=== PATIENT | male | born 1990 | race Caucasian/White ===

== ENCOUNTER 2016-10-16 13:14 | Inpatient (IN) | payer BC, OTHER ==
[~2016-10-16] VITALS: Ht 185.4 cm; Wt 86.2 kg
[2016-10-16] MEDS ORDERED: ACETAMINOPHEN 325 MG TABLET PO PRN (13:30)
[2016-10-16] MEDS ORDERED: MAG HYDROX/AL HYDROX/SIMETH 30 ML LIQUID UDC PO PRN (13:30)
[2016-10-16] MEDS ORDERED: MAGNESIUM HYDROXIDE 30 ML LIQUID UDC PO PRN (13:30)
[2016-10-16] MEDS ORDERED: LOPERAMIDE HCL 2 MG CAPSULE PO PRN ×2 (13:30)
[2016-10-16] MEDS ORDERED: CLONIDINE HCL 0.1 MG TABLET PO PRN (13:30)
[2016-10-16] MEDS ORDERED: ONDANSETRON ODT 4 MG TAB.RAPDIS SL PRN (13:30)
[2016-10-16] MEDS ORDERED: BUPRENORPHINE HCL 2 MG TAB.SUBL SL PRN (13:30)
[2016-10-16] MEDS ORDERED: DICYCLOMINE HCL 20 MG TABLET PO PRN (13:30)
[2016-10-16] MEDS ORDERED: IBUPROFEN 600 MG TABLET PO PRN (13:30)
[2016-10-16] MEDS ORDERED: HYDROXYZINE PAMOATE 25 MG CAPSULE PO PRN (13:30)
[2016-10-16] MEDS ORDERED: ONDANSETRON 4 MG/2 ML VIAL IM PRN (13:30)
[2016-10-16] MEDS ORDERED: MIRALAX 17 GM POWD.PACK PO PRN (13:30)
--- NOTE | 2016-10-16 14:49 | NUR ---
Admission Note VS: BP: 107/68 HR:61, SpO2: 98% RA, RR: 16, Temp: 97.7 Pain:0/10 Height: 6'1" Weight: 190 LB Allergies: LEA Pt is a 26 y/o male admitted to [facility] on 10/16/16 at 1400. Pt is under the care of Dr. Johnson for Heroin dependence. Pt denies suicidal and homicidal ideations at this time. Pt denies Chest Pain and SOB. Pt did not bring any home medications with him and denies taking any prescription medications. Upon assessment pt's skin integrity is intact. COWS 2 upon admission for anxiety and mild chills. NKA. Full Code. Alert and oriented x4. Pt is able to answer questions necessary for the admission process. Pt is Full Code. VS WNL, Regular Diet. Pt denies any past medical Hx. Hx of back surgery at 19 and 3 left knee surgeries. Reports Hx of a alcohol abuse by his father. Pt denies having any seizures in the past. Pt denies having a PCP. Breathing is even and unlabored, SpO2 is 98% on RA. Pt ambulates with a steady gait. Pt reports regular daily BM. LBM on 10/16/16. Pt reports smoking 1/[address] Johnson has been notified, pt has been placed under observation with an expected 5 day Subutex taper to began on 10/17/16. Urine has been collected for UDS. All needs have been met. Pt has been oriented to the room and the unit. All safety measures in place per hospital policy. Bed in lowest position, side rails up x2 and padded, call-light within reach. Will continue to monitor. Substance Abuse: Heroin: smokes 1g daily for 5 months. Last use: 1/4g on 10/16/16 at 0630
[2016-10-16 15:09] LABS: BASOPHILS # (AUTO) 0.1 K/uL (0.0-8.0); EOSINOPHILS # (AUTO) 0.4 K/uL (0.0-0.7); EOSINOPHILS % (AUTO) 6.3 % (0.0-7.0); HEMATOCRIT 41.5 % (40-50); HEMOGLOBIN 13.6 G/DL (14.0-18.0); LYMPHOCYTES # (AUTO) 2.3 K/UL (0.8-4.8); LYMPHOCYTES % (AUTO) 33.6 % (20.5-51.5); MEAN CORPUSCULAR HEMOGLOBIN 29.5 UUG (27.0-31.0); MEAN CORPUSCULAR HGB CONC 33 g/dL (32.0-37.0); MEAN CORPUSCULAR VOLUME 89.8 FL (82.0-92.0); MONOCYTES # (AUTO) 0.6 K/UL (0.1-1.30); MONOCYTES % (AUTO) 8.2 % (0.0-11.0); NEUTROPHILS # (AUTO) 3.6 K/UL (1.8-8.9); NEUTROPHILS % (AUTO) 50.9 % (38.5-71.5); PLATELET COUNT (AUTO) 226 K/UL (150-450); RED BLOOD CELL COUNT(AUTO) 4.62 MIL/UL (4.7-6.1)
[2016-10-16 15:12] LABS: *AMPHETAMINE, URINE POSITIVE (NEGATIVE); *BARBITURATE, URINE NEGATIVE (NEGATIVE); *CANNABINOID, URINE POSITIVE (NEGATIVE); *COCCAINE, URINE NEGATIVE (NEGATIVE); *OPIATE, URINE POSITIVE (NEGATIVE); *PHENCYCLIDINE SCREEN,URINE NEGATIVE (NEGATIVE)
[2016-10-16 15:16] LABS: ALANINE AMINOTRANSFERASE 18 U/L (16-63); ALKALINE PHOSPHATASE 62 U/L (50-136); ASPARTATE AMINOTRANSFERASE 13 U/L (15-37); BILIRUBIN,TOTAL 0.2 mg/dL (0.2-1.0); CARBON DIOXIDE 31 mmol/L (21-32); CHLORIDE 105 mmol/L (98-107); CREATININE 0.8 mg/dL (0.6-1.3); GLUCOSE 83 mg/dL (74-106); MAGNESIUM 2.2 mg/dL (1.8-2.4); POTASSIUM 4.3 mmol/L (3.5-5.1); TOTAL PROTEIN, SERUM 6.7 g/dL (6.4-8.2); UREA NITROGEN, BLOOD 10 mg/dL (7-18)
[2016-10-16 15:36] LABS: ETHANOL < 3 MG/DL (0-0)
[2016-10-16 16:00] VITALS: BP 100/71
--- NOTE | 2016-10-16 19:09 | NUR ---
End of Shift Endorsement given to nightshift nurse. Pt is a 26 y/o male admitted to [facility] on 10/16/16 at 1400. Pt is under the care of Dr. Johnson for Heroin dependence. Pt denies suicidal and homicidal ideations at this time. Pt denies Chest Pain and SOB. Pt did not bring any home medications with him and denies taking any prescription medications. Upon assessment pt's skin integrity is intact. COWS 2 upon admission for anxiety and mild chills. NKA. Full Code. Alert and oriented x4. Pt is able to answer questions necessary for the admission process. Pt is Full Code. VS WNL, Regular Diet. Pt denies any past medical Hx. Hx of back surgery at 19 and 3 left knee surgeries. Reports Hx of a alcohol abuse by his father. Pt denies having any seizures in the past. Pt denies having a PCP. Breathing is even and unlabored, SpO2 is 98% on RA. Pt ambulates with a steady gait. Pt reports regular daily BM. LBM on 10/16/16. Pt reports smoking 1/2 pack a day. Pt did not receive any PRN medications. Intake: 150ml, Void x1, BM x0. All needs have been met. Pt has been oriented to the room and the unit. All safety measures in place per hospital policy. Bed in lowest position, side rails up x2 and padded, call-light within reach. Will continue to monitor.
--- NOTE | 2016-10-16 19:50 | NUR ---
START OF SHIFT Received report from day shift nurse. Pt is in his room watching TV. He is a 26 yo male admitted to [facility] for heroin dependence. He is A&O x4 and ambulatory. NKA, full code status, and on a regular diet. He has a PMH of left knee surgery and back surgery. On admission he reported using heroin 1 gram per day. Last use was this morning. Pt is ordered a 5 day subutex taper to start tomorrow. PRN medications available for the management of withdrawal symptoms. He is observed to be yawning and has moist skin. Fall and seizure precautions in place. Bed is down with call light in reach.
[2016-10-16 20:00] VITALS: BP 108/67
--- NOTE | 2016-10-16 20:00 | NUR ---
Nursing note Clarified with patient after UDS on admission shows positive for amphetamines and cannabinoids. Pt states he last used methamphetamine approximately one month ago. He cannot recall any recent use of amphetamines. He smoked marijuana on 10/15/16. He uses methamphetamine and marijuana 1x/month.
[2016-10-17] VITALS: BP 103/57
--- NOTE | 2016-10-17 | NUR ---
0000 COWS deferred COWS ordered Q4HWA. Pt is lying in bed resting with eyes closed. Vitals obtained. Safety measures in place.
[2016-10-17 04:00] VITALS: BP 101/59
--- NOTE | 2016-10-17 04:00 | NUR ---
0400 COWS deferred COWS ordered Q4HWA. Pt is lying in bed resting with eyes closed. Vitals obtained. Safety measures in place.
--- NOTE | 2016-10-17 07:05 | NUR ---
END OF SHIFT Report provided to day shift nurse. Pt is lying in bed resting. He is a 26 yo male admitted to [facility] on today for heroin dependence. He is A&O and ambulatory. NKA, full code status, and on a regular diet. He has a PMH of left knee surgery and back surgery. Upon admission he admitted to using heroin 1 gram per day. He used methamphetamine one month ago and marijuana on 10/15/16. He uses meth and marijuana 1x/month. He is ordered a 5 day subutex taper to start today. No PRN medications administered. Last COWS 3. He drank 1210mL and slept 8 hours. Fall and seizure precautions in place. Bed is down with call light in reach.
--- NOTE | 2016-10-17 07:51 | NUR ---
START OF SHIFT NOTE Received patient this AM Aox4. Patient sleeping in bed, but awakens to RN walking in room. He reports feeling "achey" but slept okay. He is to start a 5 day Subutex taper this morning. No PRNs given during overnight associate. He slept 8 hours. Last COWS 3 per overnight associate. Encouraged patient to increase fluid intake to facilitate detox. Will provide safe and supportive environment. Will continue to monitor.
[2016-10-17 08:00] VITALS: BP 118/64
[2016-10-17] MEDS: MULTIVITAMINS,THERAPEUTIC TABLET PO SCH (08:25)
[2016-10-17] MEDS ORDERED: TUBERCULIN,PURIF.PROT.DERIV. 5 TU/0.1 ML TEST ID ONE (09:00)
[2016-10-17] MEDS ORDERED: BUPRENORPHINE HCL 2 MG TAB.SUBL SL SCH (09:00)
[2016-10-17 12:00] VITALS: BP 104/62
[2016-10-17] MEDS: BUPRENORPHINE HCL 2 MG TAB.SUBL SL SCH ×3 (12:45→21:23)
[2016-10-17] MEDS: HYDROXYZINE PAMOATE 25 MG CAPSULE PO PRN ×2 (12:55→21:23)
[2016-10-17] MEDS: METHOCARBAMOL 750 MG TABLET PO PRN ×2 (12:55→21:23)
--- NOTE | 2016-10-17 12:57 | NUR ---
PRN MEDICATION PRN VISTARIL AND ROBAXIN GIVEN. PATIENT REPORTS BODY ACHES 6/10 ON PAIN SCALE. HE REPORTS AN INCREASE IN ANXIETY. WILL REASSESS
--- NOTE | 2016-10-17 13:32 | NUR ---
PRN REASSESSMENT Patient noted to be sleeping calmly in bed with rr even and unlabored. Call andrews within reach & bed locked and in lowest position. Will monitor.
[2016-10-17 14:08] LABS: HEPATITIS B SURFACE AG Negative (Negative)
[2016-10-17 16:00] VITALS: BP 94/61
--- NOTE | 2016-10-17 18:29 | NUR ---
END OF SHIFT NOTE Patient started on 5 day Subutex taper and tolerating well. PRN Vistaril and Robaxin given during shift with effectiveness. Last COWS 10. Patient reports feeling "crappy" all day and anxious. Vital signs stable. Patient slept most of shift and isolated self in room. No interaction with peers or group attendance. TB test administered during shift to [facility]. All needs have been met. Safety measures in place. Patient currently sleeping in bed with rr even and unlabored, call andrews within reach. Will pass shift report to [place] nurse.
[2016-10-17 20:00] VITALS: BP 113/67
--- NOTE | 2016-10-17 20:00 | NUR ---
START OF SHIFT NOTE PATIENT IN HIS ROOM, RESTING. PATIENT STATES HE'S ANXIOUS, SWEATING, HAS STOMACH CRAMPS, TREMORS NOT OBSERVED BUT FELT, YAWNING, NO N/V, AND C/O GENERALIZED BODY ACHES 10/14. PATIENT DID NOT ATTEND GROUPS, ENCOURAGED. PER PER PATIENT HE HAS NO APPETITE. ENCOURAGED FLUIDS. RECEIVED REPORT FROM DAY SHIFT NURSE. PATIENT IS A 26 YEAR OLD MALE, ADMITTED FOR HEROIN DEPENDENCE. PATIENT IS ON 5 DAY SUBUTEX TAPER. UPON ADMISSION, PATIENT REPORTED USING HEROIN (SMOKED) 1 GRAM FOR 5 MONTHS , METH AND MARIJUANA OCCASIONALLY. PATIENT REPORT PMH OF LEFT KNEE SURGERY X 3 AND BACK SURGERY X 1 IN 2009. SKIN INTACT. PATIENT IS ON FALL PRECAUTION. PATIENT WAS GIVEN ROBAXIN AND VISTARIL . PATIENT WAS TRYING TO LEAVE AMA TODAY, ADMINISTRATION TALKED TO PATIENT AND STAYED. LAST 10. SAFETY MEASURES IN PLACE. CALL LIGHT IN REACH. WILL CONTINUE TO MONITOR
[2016-10-17] MEDS: diphenhydrAMINE 50 MG CAPSULE PO PRN (21:23)
--- NOTE | 2016-10-17 21:23 | NUR ---
PRN BENADRYL/ROBAXIN AND VISTARIL ADMINISTRATION PATIENT C/O GENERALIZED BODY ACHES /10, ANXIETY AND REQUESTS FOR SLEEP AID. PRN BENADRYL, ROBAXIN AND VISTARIL GIVEN. WILL MONITOR FOR EFFECTIVENESS
--- NOTE | 2016-10-17 22:23 | NUR ---
PRN BENADRYL/ROBAXIN AND VISTARIL RE-ASSESSMENT PATIENT ASLEEP AT THIS TIME. NO S/S OF DISTRESS. NO FACIAL GRIMACING. WILL CONTINUE TO MONITOR
[2016-10-18] VITALS: BP 102/62
--- NOTE | 2016-10-18 04:00 | NUR ---
COWS/VS PATIENT ASLEEP. COWS UNABLE TO ASSESS. NO S/S OF DISTRESS. RESPIRATION EVEN AND UNLABORED. RR 15. SAFETY MEASURES IN PLACE. CALL LIGHT IN REACH. WILL CONTINUE TO MONITOR.
--- NOTE | 2016-10-18 07:15 | NUR ---
START OF SHIFT NOTE: RECEIVED PT FROM COLOR PRINTER OPERATOR NURSE, PT IS IN STABLE CONDITION NO S/S OF PAIN OR DISCOMFORT. PT'S LAST COWS IS 2 AND REMAINS ON A 5 DAY SUBUTEX TAPER, NO A/R REACTION NOTED. WILL CONTINUE TO MONITOR PT FOR ANY CHANGES
--- NOTE | 2016-10-18 07:16 | NUR ---
END OF SHIFT NOTE PATIENT STATES HE'S ANXIOUS, SWEATING, HAS STOMACH CRAMPS, TREMORS NOT OBSERVED BUT FELT, YAWNING, NO N/V, AND C/O GENERALIZED BODY ACHES 10/14 BEGINNING OF SHIFT. PATIENT DID NOT ATTEND GROUPS, ENCOURAGED. PER PATIENT HE HAS NO APPETITE . ENCOURAGED FLUIDS. PATIENT IS A 26 YEAR OLD MALE, ADMITTED FOR HEROIN DEPENDENCE. PATIENT IS ON 5 DAY SUBUTEX TAPER, TOLERATED WELL. NO ADVERSE REACTION. UPON ADMISSION, PATIENT REPORTED USING HEROIN (SMOKED) 1 GRAM FOR 5 MONTHS , METH AND MARIJUANA OCCASIONALLY. PATIENT REPORT PMH OF LEFT KNEE SURGERY X 3 AND BACK SURGERY X 1 IN 2009. SKIN INTACT. PATIENT IS ON FALL PRECAUTION. PATIENT IN ROOM MOST OF THE SHIFT. PATIENT WAS GIVEN ROBAXIN AND VISTARIL . SAFETY MEASURES IN PLACE. CALL LIGHT IN REACH. WILL CONTINUE TO MONITOR. SLEPT 10 HOURS. FLUID INTAKE 2,296 ML. VOIDED X 2 . NO BM. LAST COWS 2 .
[2016-10-18] MEDS: BUPRENORPHINE HCL 2 MG TAB.SUBL SL SCH ×3 (09:00→20:32)
[2016-10-18] MEDS: MULTIVITAMINS,THERAPEUTIC TABLET PO SCH (09:00)
[2016-10-18] MEDS ORDERED: BUPRENORPHINE HCL 2 MG TAB.SUBL SL SCH ×2 (09:00→15:00)
[2016-10-18 10:00] VITALS: BP 102/62
[2016-10-18] MEDS ORDERED: BUPRENORPHINE HCL 2 MG TAB.SUBL SL ONE (10:15)
[2016-10-18 14:39] VITALS: BP 111/65
[2016-10-18] MEDS: BACLOFEN 10 MG TABLET PO SCH ×2 (15:44→20:32)
[2016-10-18 18:57] VITALS: BP 120/64
--- NOTE | 2016-10-18 19:00 | NUR ---
START OF SHIFT NOTE: Patient endorsed by day shift nurse in stable condition. Report received. Patient is a 26 year old male admitted to [facility] on 10/16/2016 for Opioid and Methamphetamine ("occasional") dependence, continue 5 day Subutex Taper since 10/17/2016 with tolerated well without ASE. Patient remains compliant with treatment, medications and diet regime. Patient reports NKA, is on Full Code, is on Regular Diet, is on Fall Precautions. Patient denies Seizures History. Past Medical History: Heroin "smoked 1 gram daily during last 5 months. Last smoked 1/4 grams on 10/16/2016". Methamphetamine: "occasional". Marijuana: "occasional". Patient reports treatment at [facility] [place] in [facility]". Upon endorsement, patient is ambulatory with steady gate, stable, AOx4, speech is soft and clear. COWS 7. Patient presented with anxiety, agitation, nervousness, mild body aches, nasal stuffy/moist eyes, stomach cramps, yawning, and restlessness. VS WNL. Respirations unlabored and even. Lungs Sounds are clear bilaterally. Bowel Sounds active in all x4 quadrants. Last Bowel Movement was "10/18/16 at 1000". Skin is intact, warm and dry to touch. Encouraged fluids as tolerated. Encouraged to attend groups activities. Safety measures on place. Call light within reach, bed in lowest position and locked, padded rails up bilaterally rails up bilaterally. Will continue to monitor closely.
--- NOTE | 2016-10-18 19:00 | NUR ---
END OF SHIFT NOTE: PT IS IN STABLE CONDITION NO S/S OF PAIN OR DISCOMFORT, PT TOLERATED TAPER WELL NO A/R NOTED. PTS LAST COWS 3.PT IS ADMITTED TO [facility] FOR [facility]/METH. WITHDRAWAL/DEPENDENCE. WILL ENDORSE PT TO MARKETING AUTOMATION SPECIALIST NURSE.
[2016-10-18 20:00] VITALS: BP 114/63
[2016-10-18] MEDS: GABAPENTIN 300 MG CAPSULE PO SCH (20:31)
[2016-10-18] MEDS: diphenhydrAMINE 50 MG CAPSULE PO PRN (20:41)
--- NOTE | 2016-10-18 20:41 | NUR ---
PRN BENADRYL 50 MG 1 CAP PO ADMINISTRATION Patient c/o insomnia and ask aid. PRN Benadryl PO was discussed with patient. Patient's educated foe actions, adverse reactions, and side effects of Benadryl. Patient returned his knowledge back by verbalized understanding. PRN Benadryl 50 mg 1 cap PO administrated as ordered with full glass of water. All needs met. Safety measures on place. Call light within reach, bed in lowest position and locked, padded rails up bilaterally rails up bilaterally. Will continue to monitor closely.
--- NOTE | 2016-10-18 21:41 | NUR ---
RE-ASSESSMENT Patient is sleeping. RR 14. Respirations unlabored and even. PRN Benadryl PO was effective. All needs met. Safety measures on place. Call light within reach, bed in lowest position and locked, padded rails up bilaterally rails up bilaterally. Will continue to monitor closely.
[2016-10-19] VITALS: BP 119/71
--- NOTE | 2016-10-19 04:00 | NUR ---
VS REFUSED AND COWS DEFERRED Patient refused to be woken up for 04:00 VS. COWS deferred d/t patient sleeping to assess while patient is awake. Safety measures on place by hospital policy: Call light within reach, bed in lowest position and locked; side rails up x2. Will continue to monitor.
--- NOTE | 2016-10-19 07:23 | NUR ---
END OF SHIFT NOTE: Patient endorsed to day shift nurse in stable condition. Report given. Patient is a 26 year old male admitted to [facility] on 10/16/2016 for Opioid and Methamphetamine ("occasional") dependence, continue 5 day Subutex Taper since 10/17/2016 with tolerated well without ASE. Patient remains compliant with treatment, medications and diet regime. Patient reports NKA, is on Full Code, is on Regular Diet, is on Fall Precautions. Patient denies Seizures History. Past Medical History: Heroin "smoked 1 gram daily during last 5 months. Last smoked 1/4 grams on 10/16/2016". Methamphetamine: "occasionally". Marijuana: "occasionally". Last COWS decreased from 7 to 4. Patient presented with anxiety, agitation, nervousness, tremors that can be felt, mild body aches, stomach cramps, yawning, insomnia, and restlessness. VSWNL. Respirations unlabored and even. Patient denies SOB and chest pain. Skin is warm and dry to touch. PRN Benadryl PO was effective. Encouraged fluids as tolerated. Patient slept 8 hours, intake 1,000 ml, voided x1. All needs met. Safety measures on place. Call light within reach, bed in lowest position and locked, bed rails up bilaterally.
--- NOTE | 2016-10-19 07:30 | NUR ---
START OF SHIFT Pt 26 y/o male admitted for heroin dependence. Pt received in room on bed with eyes closed resting, but easily arousable to name. Pt alert and oriented to name, place, and time. Perrla. Skin warm and slightly moist to touch. Respirations even and unlabored. It was reported that pt slept for 8 hours last night. Bed on lowest position with side rails x2 up for safety. Call light within reach. No distress noted at this time.
[2016-10-19 08:00] VITALS: BP 101/63
[2016-10-19] MEDS: BACLOFEN 10 MG TABLET PO SCH ×3 (08:45→21:13)
[2016-10-19] MEDS: GABAPENTIN 300 MG CAPSULE PO SCH ×2 (08:45→21:13)
[2016-10-19] MEDS: MULTIVITAMINS,THERAPEUTIC TABLET PO SCH (08:45)
[2016-10-19] MEDS ORDERED: BUPRENORPHINE HCL 2 MG TAB.SUBL SL SCH ×2 (09:00)
[2016-10-19 13:00] VITALS: BP 110/72
[2016-10-19] MEDS: BUPRENORPHINE HCL 2 MG TAB.SUBL SL SCH ×2 (14:10→21:13)
[2016-10-19] MEDS: HYDROXYZINE PAMOATE 25 MG CAPSULE PO PRN (14:19)
--- NOTE | 2016-10-19 14:21 | NUR ---
PRN Pt states feels anxious. vistaril po prn per MD order given and tolerated well.
--- NOTE | 2016-10-19 14:22 | NUR ---
PRN Pt states still feels very anxious. Catapres po prn per MD order given and tolerated well.
--- NOTE | 2016-10-19 15:22 | NUR ---
JUSTIN HAND Pt observed in room on bed with eyes closed resting, but easily arousable to name. No distress noted at this time.
[2016-10-19 16:00] VITALS: BP 100/58
[2016-10-19 16:30] VITALS: BP 110/64
--- NOTE | 2016-10-19 18:31 | NUR ---
END OF SHIFT Pt 26 y/o male admitted for heroin dependence. Pt alert and oriented to name,place, and time. Perrla. Skin warm and moist to touch. Respirations even and unlabored. Bilateral hand tremors slightly noted. Pt was observed mostly isolative to room throughout the day. pt did not attend group activity. Pt was seen by Dr. Ivory today. Pt medication compliant and tolerated well. No ASE noted. Bed on lowest position with side rails x2 up for safety. Call light within reach. No distress noted at this time.
--- NOTE | 2016-10-19 19:15 | NUR ---
START OF SHIFT Received 26 year old male patient admitted on 10/16/16 for Heroin, meth and marijuana dependency. He is full code with with NKA. He reports a PMHx of left knee surgery and back surgery x1 in 2009. He reports using Heroin 1 gram (smoke) daily for 5 months. Last dose was gram on 10/16/16. Pt placed on 5 day Subutex and tolerating well. Per endorsement, pt received PRN catapres and vistaril. Pt is alert and oriented x4, breathing even and unlabored. Safety measures in place. Will continue to monitor.
[2016-10-19 20:00] VITALS: BP 102/65
[2016-10-19] MEDS: diphenhydrAMINE 50 MG CAPSULE PO PRN (21:13)
--- NOTE | 2016-10-19 21:13 | NUR ---
PRN BENADRYL Pt complains of inability to sleep. PRN Benadryl administered as ordered. Breathing even and unlabored, safety measures in place. Will continue to monitor effectiveness.
--- NOTE | 2016-10-19 22:13 | NUR ---
PRN BENADRYL REASSESSMENT PRN medication effective. Pt lying in bed with eyes closed noted to be asleep. Respirations 16, breathing even and unlabored, safety measures in place. Will monitor.
--- NOTE | 2016-10-20 | NUR ---
VITALS REFUSED, COWS DEFERRED 0000 vitals refused. COWS deferred d/t pt lying in bed with eyes closed noted to be asleep. Respirations 16, breathing even and unlabored. Safety measures in place. Will monitor.
--- NOTE | 2016-10-20 04:00 | NUR ---
VITALS REFUSED/COWS DEFERRED 0400 vitals refused. COWS deferred d/t pt lying in bed with eyes closed noted to be asleep. Respirations 16, breathing even and unlabored. Safety measures in place. Will continue to monitor.
--- NOTE | 2016-10-20 07:10 | NUR ---
Start of Shift Endorsement received from nightshift nurse. Pt has been placed 5 day Subutex taper. Pt is tolerating the taper and moderately withdrawing at this time AEB COWS 5 at 0400. Pt received PRN Benadryl during nightshift. Pt reports sleeping 9 hours. Pt reports feeling rested and ready for sobriety. VS WNL. Full Code. VS WNL, Full CODE. PT is alert and oriented x4. Pt is in STABLE condition at this time. Remains compliant with medication and diet regimen. All needs have been met, All safety measures in place per hospital policy. Bed in lowest position, side rails up x2, call-light within reach. Will continue to monitor
--- NOTE | 2016-10-20 07:15 | NUR ---
END OF SHIFT Pt is a 26 year old male patient admitted on 10/16/16 for Heroin, meth and marijuana dependency. He is full code with with NKA. He reports a PMHx of left knee surgery and back surgery x1 in 2009. Pt continues on 5 day Subutex, currently on day 5 and tolerating well. At 2112 he received PRN Benadryl. He slept a total of 9hrs, Intake:500mLVoid:x2 BM:0 COWS:5. Pt remains alert and oriented x4, breathing even and unlabored. Safety measures in place. Endorsed to oncoming shift.
[2016-10-20 08:00] VITALS: BP 112/67
[2016-10-20] MEDS ORDERED: BUPRENORPHINE HCL 2 MG TAB.SUBL SL SCH (09:00)
[2016-10-20] MEDS: MULTIVITAMINS,THERAPEUTIC TABLET PO SCH (09:12)
[2016-10-20] MEDS: BUPRENORPHINE HCL 2 MG TAB.SUBL SL SCH ×3 (09:12→21:46)
[2016-10-20] MEDS: GABAPENTIN 300 MG CAPSULE PO SCH ×2 (09:12→21:46)
[2016-10-20] MEDS: BACLOFEN 10 MG TABLET PO SCH ×3 (09:12→21:46)
[2016-10-20 12:00] VITALS: BP 124/77
[2016-10-20] MEDS ORDERED: TRAZODONE 50 MG TABLET PO PRN (15:30)
[2016-10-20 16:00] VITALS: BP 122/74
--- NOTE | 2016-10-20 19:14 | NUR ---
End of Shift Endorsement given to nightshift nurse. Pt has been placed 5 day Subutex taper. Pt is tolerating the taper and moderately withdrawing at this time AEB COWS 3 at 1600. Pt did not receive any PRN medications. Pt reports participating in groups and activities. Educated pt on medications s/e and diet regimen. intake: 4250ml, Void x7, BM x1. VS WNL. Full Code. VS WNL, Full CODE. PT is alert and oriented x4. Pt is in STABLE condition at this time. Remains compliant with medication and diet regimen. All needs have been met, All safety measures in place per hospital policy. Bed in lowest position, side rails up x2, call-light within reach. Will continue to monitor
[2016-10-20 20:00] VITALS: BP 110/65
--- NOTE | 2016-10-20 20:00 | NUR ---
Start of Shift Note: Report received from day shift nurse. Pt is a 26 yo male admitted on 10/16/16 for medically-supervised withdrawal from opiates. Pt reports using 1gm heroin via smoke inhalation daily for five months; pt also reports occasional use of methamphetamine and marijuana. Pt is on a 5-day Subutex taper. Pt received with last COWS=2, and no PRN medications were given during day shift. Pt is a full code, reports NKDA/NKFA, and is on a regular diet. PMHx: left knee and back surgery. Pt received in room, and reports hip pain, dyspepsia, and anxiety. Bed is in low position and locked, side rails up x2, call light within reach. Will continue to monitor.
--- NOTE | 2016-10-20 21:48 | NUR ---
PRN's Maalox, Motrin, and Trazodone: Patient complains of dyspepsia. Administered PRN Maalox as ordered. Patient complains of hip pain. Patient rates pain 4/10. Administered PRN Motrin as ordered. Patient complains of inability to sleep. Administered PRN Trazodone as ordered. Will continue to monitor.
--- NOTE | 2016-10-20 22:50 | NUR ---
PRN Reassessment: Patient reports 0/10 hip pain. Patient denies dyspepsia at this time. PRN's Motrin and Maalox effective.
[2016-10-21] VITALS: BP 94/51
--- NOTE | 2016-10-21 | NUR ---
COWS Deferred: COWS assessment is deferred for sleep. V/S stable. All safety precautions are in place. Will continue to monitor. Addendum: 10/21/16 at 0141 by KAREY GUO RN Amended: Links added.
--- NOTE | 2016-10-21 04:00 | NUR ---
Vitals Refused: Patient refuses 04:00 V/S assessment. Patient educated on risks/benefits but still refused. All safety precautions are in place. Will continue to monitor. Addendum: 10/21/16 at 0509 by KAREY GUO RN Amended: Links added.
--- NOTE | 2016-10-21 04:00 | NUR ---
COWS Deferred: COWS assessment is deferred for sleep. V/S stable. All safety precautions are in place. Will continue to monitor. Addendum: 10/21/16 at 0457 by KAREY GUO RN Amended: Links added.
--- NOTE | 2016-10-21 06:49 | NUR ---
End of Shift Note: Pt is a 26 yo male admitted to [facility] on 10/16/16 for medically-supervised withdrawal from opiates. Pt reports a PMHx of left knee and back surgery. Pt is a full code. Pt reports NKDA/NKFA. Pt is on a regular diet. Pt reported using 1gm heroin via smoke inhalation daily for five months and was placed on a 5-day Subutex taper. Scheduled medication regime effectively managed s/s of withdrawal this shift, in addition to PRN Maalox for dyspepsia and PRN Motrin for pain. Last COWS=4 at 20:00. V/S stable throughout shift. Total fluid intake this shift: 2802 ml; output: urine x 3 and BM x 0. PRN Trazodone was given for inability to sleep, which was effective and pt slept 6 hours this shift. Pt is currently in bed, all needs have been attended and met. Pt endorsed to day shift nurse.
--- NOTE | 2016-10-21 07:02 | NUR ---
Start of Shift Endorsement received from nightshift nurse. Pt has been placed 5 day Subutex taper. Pt is tolerating the taper and mildly withdrawing at this time AEB COWS 3 at 0400. Pt received PRN Motrin. Pt reports sleeping 6 hours. Pt reports feeling feeling tired due to being woken up repeatedly during the night. Pt is expected to complete his taper today and to be discharged 10/22/16. VS WNL. Full Code. VS WNL, Full CODE. PT is alert and oriented x4. Pt is in STABLE condition at this time. Remains compliant with medication and diet regimen. All needs have been met, All safety measures in place per hospital policy. Bed in lowest position, side rails up x2, call-light within reach. Will continue to monitor
[2016-10-21 08:00] VITALS: BP 105/59
[2016-10-21] MEDS: BACLOFEN 10 MG TABLET PO SCH ×3 (08:19→21:27)
[2016-10-21] MEDS: MULTIVITAMINS,THERAPEUTIC TABLET PO SCH (08:19)
[2016-10-21] MEDS: GABAPENTIN 300 MG CAPSULE PO SCH ×2 (08:20→21:27)
[2016-10-21] MEDS ORDERED: BUPRENORPHINE HCL 2 MG TAB.SUBL SL SCH (09:00)
[2016-10-21 12:00] VITALS: BP 123/72
[2016-10-21 13:49] LABS: *AMPHETAMINE, URINE NEGATIVE (NEGATIVE); *BARBITURATE, URINE NEGATIVE (NEGATIVE); *CANNABINOID, URINE NEGATIVE (NEGATIVE); *COCCAINE, URINE NEGATIVE (NEGATIVE); *OPIATE, URINE POSITIVE (NEGATIVE); *PHENCYCLIDINE SCREEN,URINE NEGATIVE (NEGATIVE)
[2016-10-21] MEDS ORDERED: TRAZ-144 PO (16:59)
[2016-10-21] MEDS ORDERED: HYDR-3895 PO (16:59)
[2016-10-21] MEDS ORDERED: BACL10TA PO (16:59)
[2016-10-21] MEDS ORDERED: GABA-534 PO (16:59)
[2016-10-21] MEDS ORDERED: IBUP-1955 PO (16:59)
[2016-10-21] MEDS ORDERED: DICY20TA28 PO (16:59)
[2016-10-21 17:00] VITALS: BP 128/75
[2016-10-21] MEDS ORDERED: diphenhydrAMINE 50 MG CAPSULE PO PRN (18:15)
--- NOTE | 2016-10-21 18:53 | NUR ---
End of Shift Endorsement given to nightshift nurse. Pt has been placed 5 day Subutex taper. Pt is tolerating the taper and moderately withdrawing at this time AEB COWS 2 at 1600. Pt did not receive any PRN medications. Pt reports participating in groups and activities. Pt has been scheduled to be discharged on 10/22/16. All discharge documentation has been completed, discharge education has been provided. Pt has provided urine for UDS. reinforced education on medications s/e and diet regimen. intake: [id number], Void x5, BM x1. VS WNL. Full Code. VS WNL, Full CODE. PT is alert and oriented x4. Pt is in STABLE condition at this time. Remains compliant with medication and diet regimen. All needs have been met, All safety measures in place per hospital policy. Bed in lowest position, side rails up x2, call-light within reach. Will continue to monitor
--- NOTE | 2016-10-21 19:15 | NUR ---
START OF SHIFT Received 26 year old male patient admitted on 10/16/16 for Heroin dependency. Pt is full code with NKA. He reports a PMHx of left knee surgery and back surgery x1 in 2009. He reports a PMHx of Heroin 1 gram daily ( smoke) daily for 5 months. Last dose was 1/4 gram. And occasional use of meth and marijuana. Pt completed 5 day Subutex taper and tolerated well. Per endorsement, pt is scheduled to be DC tomorrow to [facility]. He did not receive or request PRN medications. Pt is alert and oriented x4, breathing is even and unlabored. Safety measures in place. Will continue to monitor.
[2016-10-21 20:00] VITALS: BP 126/79
--- NOTE | 2016-10-21 22:53 | NUR ---
PRN BENADRYL Pt complains of inability to sleep. PRN Benadryl administered as ordered. Breathing is even and unlabored, safety measures in place. Will monitor effectiveness.
--- NOTE | 2016-10-21 23:53 | NUR ---
PRN BENADRYL REASSESSMENT PRN medication ineffective after 1 hr. Pt reports he feels somewhat drowsy and is ready to sleep soon. Breathing is even and unlabored, safety measures in place. Will continue to monitor.
[2016-10-22] VITALS: BP 139/81
--- NOTE | 2016-10-22 04:00 | NUR ---
VITALS REFUSED, COWS DEFERRED 0400 vitals refused. COWS deferred d/t pt lying in bed with eyes closed noted to be asleep. Respirations 16, breathing is even and unlabored. Safety measures in place. Will monitor.
--- NOTE | 2016-10-22 07:15 | NUR ---
END OF SHIFT Pt is a 26 year old male patient admitted on 10/16/16 for Heroin dependency. Pt is full code with [facility]. He reports a PMHx of left knee surgery and back surgery x1 in 2009. Pt completed 5 day Subutex taper and tolerated well. He is scheduled to be DC'd to [facility]. At 2253 he received PRN Benadryl. He slept a total of 5hrs, Intake:1841mL, Void:x3 BM: 0, COWS:1. Pt remains alert and oriented x4, breathing is even and unlabored. Safety measures in place. Endorsed to oncoming shift.
--- NOTE | 2016-10-22 07:15 | NUR ---
Start of shift note Pt was admitted for opiate dependence. Pt had a PMHx of having surgery on his left knee and back surgery. Pt states that he feels ready for discharge. LBM 10/21/16. Denies any SI/HI. Denies any S/S of withdrawal. Will continue to monitor pt. All needs addressed at this time.
[2016-10-22 08:00] VITALS: BP 125/74
[2016-10-22] MEDS: GABAPENTIN 300 MG CAPSULE PO SCH (08:31)
[2016-10-22] MEDS: BACLOFEN 10 MG TABLET PO SCH (08:31)
[2016-10-22] MEDS: MULTIVITAMINS,THERAPEUTIC TABLET PO SCH (08:31)
--- NOTE | 2016-10-22 09:40 | NUR ---
D/C NOTE Pt is A/O x4. V/S remain WNL. Pt denies SI/HI or hallucinations. Pt shows no s/s of acute withdrawal at this time, and is stable. has medically cleared pt for d/c . Education on Hepatitis C, smoking cessation and medication side effects provided. Pt verbalizes understanding. All pt belongings are in belonging bag, including prescriptions, pt did not have any home medications. Refuses PNU vaccination. Pt is being accompanied by [facility] at this time to be transported to rehab. All needs met.
== END 2016-10-22 09:40 | disposition other institution (70) | DRG 895 ==
LOC: SRC 13:14
PROVIDERS: ADMIT Internal Medicine; ATTEND Internal Medicine
PROC: HZ2ZZZZ Detoxification Services for Substance Abuse Treatment (ICD-10-PCS; principal; 2016-10-16)
PROC: HZ31ZZZ Individual Counseling for Substance Abuse Treatment, Behavioral (ICD-10-PCS; 2016-10-18)
PROC: HZ41ZZZ Group Counseling for Substance Abuse Treatment, Behavioral (ICD-10-PCS; 2016-10-20)
DX: F11.23 Opioid dependence with withdrawal (principal); F17.200 Nicotine dependence, unspecified, uncomplicated; Z83.3 Family history of diabetes mellitus; Z82.49 Family history of ischemic heart disease and other diseases of the circulatory system; Z81.1 Family history of alcohol abuse and dependence; D64.9 Anemia, unspecified; F15.10 Other stimulant abuse, uncomplicated; F12.90 Cannabis use, unspecified, uncomplicated; G47.00 Insomnia, unspecified
CPT/HCPCS: 36415; 70030-TC; 80307; 80324; 80349; 80361; 83735; 85025; 86592; 86705; 86803; 87340; 87806; A4663; G0480; Q0163